=== PATIENT | female | born 1955 | race African-American/Black ===

== ENCOUNTER 2023-05-07 20:10 | Inpatient (IN) | payer OTHER ==
[2023-05-07 20:28] VITALS: BMI 30.9
[2023-05-07] MEDS ORDERED: ACETAMINOPHEN 1000 MG/100 ML BAG IVPB ONE (21:14)
[2023-05-07] MEDS ORDERED: ACETAMINOPHEN INJECTION 100 ML IVPB ONE ×2 (22:31→23:39)
[2023-05-07 23:29] LABS: EPI CELLS 11 /uL (0-25.1); HYALINE CASTS 10 /uL (0-3.1); PH,URINE >= 9.0 (5.0-8.0); URINE APPEARANCE TURBID; URINE BILIRUBIN 1+ (NEGATIVE); URINE COLOR RED; URINE GLUCOSE (UA) NEGATIVE (NEGATIVE); URINE KETONE NEGATIVE (NEGATIVE); URINE LEUK ESTERASE 3+ (NEGATIVE); URINE NITRITE POSITIVE (NEGATIVE); URINE PROTEIN 3+ (NEGATIVE); URINE UROBILINOGEN 0.2 mg/dL (0.2-1.0); URINE WBC 701 /uL (0-25.8)
[2023-05-07 23:33] LABS: URINE BACTERIA 63.1 /uL (0-1359)
[2023-05-07 23:33] LABS: BASO % 1.1 % (0-2.0); EOS % 2.1 % (0-4.5); HEMATOCRIT 39.7 % (32.4-45.2); HEMOGLOBIN 13.1 GM/dL (10.7-15.3); LYMPH % 33.5 % (8-40); MCH 27.9 pg (25.7-33.7); MCHC 33.1 g/dl (32.0-36.0); MEAN CELL VOLUME 84.4 fl (80-96); MEAN PLT VOLUME 8.7 fl (7.5-11.1); MONO % 5.7 % (3.8-10.2); NEUT % 57.6 % (42.8-82.8); PLATELET COUNT 269 10^3/uL (134-434); RDW 14.6 % (11.6-15.6); WHITE BLOOD COUNT 7.2 K/mm3 (4.0-10.0)
[2023-05-07] MEDS ORDERED: morphine CARPU-JECT 4 MG/1 ML DISP.SYRIN IVPUSH ONE (23:43)
[2023-05-07] MEDS ORDERED: LACTATED RINGERS SOLUTION 1,000 ML IV STA (23:44)
[2023-05-07] MEDS ORDERED: morphine SULFATE 4 MG/ML VIAL ONE (23:50)
[2023-05-07 23:52] LABS: POTASSIUM 4.2 mmol/L (3.5-5.1)
[2023-05-07 23:54] LABS: ALBUMIN 3.3 g/dl (3.4-5.0); BLOOD UREA NITROGEN 15.9 mg/dL (7-18); CALCIUM 9.1 mg/dL (8.5-10.1)
[2023-05-07 23:57] LABS: CREATININE 0.8 mg/dL (0.55-1.3)
[2023-05-07 23:59] LABS: BILIRUBIN,TOTAL 0.3 mg/dL (0.2-1); TOT PROT 7.1 g/dl (6.4-8.2)
[2023-05-08] MEDS ORDERED: CEFTRIAXONE 1,000 MG in DEXTROSE 5%-WATER - 50 ML IVPB ONE (00:09)
[2023-05-08] MEDS ORDERED: CEFTRIAXONE 1 GM/50 ML BAG ONE (00:20)
[2023-05-08 00:33] LABS: INR 1.04 (0.83-1.09); PROTHROMBIN TIME (PATIENT) 12.1 SEC (9.7-13.0)
[2023-05-08 00:36] LABS: ACTIVATED PTT 27.8 SECONDS (25.2-36.5)
[2023-05-08] MEDS ORDERED: DOCUSATE SODIUM 100 MG CAPSULE (FP) PO PRN (03:46)
[2023-05-08 05:38] VITALS: RESP 18
[2023-05-08 06:42] LABS: BASO % 0.7 % (0-2.0); EOS % 2.6 % (0-4.5); HEMATOCRIT 37.8 % (32.4-45.2); HEMOGLOBIN 12.4 GM/dL (10.7-15.3); LYMPH % 44.2 % (8-40); MCH 27.9 pg (25.7-33.7); MCHC 32.8 g/dl (32.0-36.0); MEAN PLT VOLUME 9.3 fl (7.5-11.1); MONO % 5.5 % (3.8-10.2); PLATELET COUNT 248 10^3/uL (134-434); RBC 4.44 M/mm3 (3.60-5.2); RDW 14.4 % (11.6-15.6); WHITE BLOOD COUNT 6.4 K/mm3 (4.0-10.0)
[2023-05-08 07:04] LABS: CALCIUM 8.8 mg/dL (8.5-10.1)
[2023-05-08 07:05] LABS: BLOOD UREA NITROGEN 14.4 mg/dL (7-18)
[2023-05-08 07:08] LABS: PHOSPHOROUS 3.6 mg/dL (2.5-4.9)
[2023-05-08 07:09] LABS: CREATININE 0.7 mg/dL (0.55-1.3)
[2023-05-08] MEDS: INSULIN ASPART SLIDING SCALE (NOVOLOG) 1 VIAL SQ SCH ×4 (08:36→21:31)
[2023-05-08] MEDS ORDERED: FLUTICASONE/UMECLIDIN/VILANTER(200-62.5-25 TRELEGY ELLIPTA) INAHLER IH SCH (11:30)
[2023-05-08] MEDS: POLYETHYLENE GLYCOL (HEALTHYLAX) 3350 17 GM PACKET PO SCH ×3 (11:59→21:27)
[2023-05-08] MEDS ORDERED: traMADol HCL 50 MG TABLET PO ONE (14:11)
[2023-05-08] MEDS ORDERED: CEFTRIAXONE 1 GM in DEXTROSE 5%-WATER - 50 ML IVPB SCH (22:00)
[2023-05-09] MEDS ORDERED: ACETAMINOPHEN 325 MG TABLET (FP) PO PRN (06:00)
[2023-05-09] MEDS: INSULIN ASPART SLIDING SCALE (NOVOLOG) 1 VIAL SQ SCH ×2 (07:05→12:02)
[2023-05-09] MEDS ORDERED: ATENOLOL 25 MG TABLET (FP) PO SCH (10:00)
[2023-05-09] MEDS: POLYETHYLENE GLYCOL (HEALTHYLAX) 3350 17 GM PACKET PO SCH (10:24)
[2023-05-09 16:04] VITALS: BP 184/68; PULSE 121; TEMP 98.7
== END 2023-05-09 17:40 | disposition home or self-care (01) | DRG 690 ==
LOC: JER 20:10 → JERBED 05-08 00:13 → J5S 05-08 06:40
PROVIDERS: ADMIT Internal Medicine; ATTEND Family Medicine
DX: N30.91 Cystitis, unspecified with hematuria (principal); R51.9 Headache, unspecified; R10.9 Unspecified abdominal pain; I10 Essential (primary) hypertension; E78.5 Hyperlipidemia, unspecified; E11.9 Type 2 diabetes mellitus without complications; F17.210 Nicotine dependence, cigarettes, uncomplicated; M54.50 Low back pain, unspecified; N20.0 Calculus of kidney
CPT/HCPCS: 0241U-QW; 36415; 70450-TC; 74176-TC; 80048; 80053; 81003; 82962; 83735; 84100; 85025; 85610; 85730; 87040; 87086; 87186; 93005; 93010; 99285-25

== ENCOUNTER 2023-07-15 16:36 | Inpatient (IN) | payer OTHER ==
[2023-07-15 16:56] VITALS: BMI 29.2
[2023-07-15 17:53] LABS: BASO % 1.1 % (0-2.0); EOS % 2.4 % (0-4.5); HEMATOCRIT 38.9 % (32.4-45.2); HEMOGLOBIN 12.9 GM/dL (10.7-15.3); MEAN CELL VOLUME 84.8 fl (80-96); MEAN PLT VOLUME 8.8 fl (7.5-11.1); MONO % 6.6 % (3.8-10.2); NEUT % 64.9 % (42.8-82.8); PLATELET COUNT 234 10^3/uL (134-434); RBC 4.59 M/mm3 (3.60-5.2); RDW 14.6 % (11.6-15.6); WHITE BLOOD COUNT 5.9 K/mm3 (4.0-10.0)
[2023-07-15 17:58] LABS: VENOUS O2 SATURATION 94.3 % (70-80); VENOUS PCO2 50.3 mmHg (38-52); VENOUS PH 7.353 (7.310-7.410)
[2023-07-15 18:16] LABS: POTASSIUM 4.1 mmol/L (3.5-5.1)
[2023-07-15 18:19] LABS: CALCIUM 8.9 mg/dL (8.5-10.1)
[2023-07-15 18:21] LABS: BLOOD UREA NITROGEN 15.2 mg/dL (7-18)
[2023-07-15 18:24] LABS: BILIRUBIN,TOTAL 0.4 mg/dL (0.2-1); TOT PROT 6.4 g/dl (6.4-8.2)
[2023-07-15] MEDS ORDERED: NALOXONE HCL 0.4 MG/ML VIAL ONE (18:26)
[2023-07-15 18:28] LABS: N-TERMINAL BNP 1958.9 pg/ml (5-125)
[2023-07-15] MEDS: NALOXONE HCL 0.4 MG/ML VIAL IVPUSH ONE (18:36)
[2023-07-15 19:55] LABS: EPI CELLS 10 /uL (0-25.1); HYALINE CASTS 0 /uL (0-3.1); PH,URINE 5.5 (5.0-8.0); URINE APPEARANCE CLOUDY; URINE BACTERIA >9,000 /uL (0-1359); URINE BILIRUBIN NEGATIVE (NEGATIVE); URINE COLOR YELLOW; URINE GLUCOSE (UA) TRACE (NEGATIVE); URINE KETONE NEGATIVE (NEGATIVE); URINE LEUK ESTERASE TRACE (NEGATIVE); URINE NITRITE NEGATIVE (NEGATIVE); URINE PROTEIN 2+ (NEGATIVE); URINE RBC 6 /uL (0-23.9); URINE UROBILINOGEN 0.2 mg/dL (0.2-1.0); URINE WBC 29 /uL (0-25.8)
[2023-07-15 20:46] LABS: PHENCYCLIDINE,URINE NEGATIVE (NEGATIVE); URINE BENZODIAZEPINES NEGATIVE (NEGATIVE)
[2023-07-15 20:48] LABS: COCAINE, UR NEGATIVE (NEGATIVE); METHADONE, UR NEGATIVE (NEGATIVE); OPIATES, URI NEGATIVE (NEGATIVE); URINE BARBITURATES NEGATIVE (NEGATIVE)
[2023-07-15 20:57] LABS: URINE AMPHETAMINES NEGATIVE (NEGATIVE)
[2023-07-16] MEDS ORDERED: hydrALAZINE HCL 20 MG/ML VIAL ONE (03:32)
[2023-07-16] MEDS: hydrALAZINE HCL 20 MG/ML VIAL IVPUSH ONE ×2 (03:39→20:29)
[2023-07-16] MEDS: ACETAMINOPHEN 1000 MG/100 ML BAG IVPB ONE ×2 (03:39→21:02)
[2023-07-16] MEDS: METOPROLOL TARTRATE 5 MG/5 ML VIAL IVPUSH ONE (06:23)
[2023-07-16] MEDS: INSULIN ASPART SLIDING SCALE (NOVOLOG) 1 VIAL SQ SCH (06:33)
[2023-07-16] MEDS ORDERED: ALBUTEROL SO4 HFA INHALER IH PRN ×2 (07:11→22:54)
[2023-07-16] MEDS ORDERED: POLYETHYLENE GLYCOL (HEALTHYLAX) 3350 17 GM PACKET PO PRN (07:11)
[2023-07-16 07:39] LABS: BASO % 0.8 % (0-2.0); EOS % 2.2 % (0-4.5); HEMATOCRIT 38.8 % (32.4-45.2); HEMOGLOBIN 12.8 GM/dL (10.7-15.3); MCH 28.1 pg (25.7-33.7); MCHC 32.9 g/dl (32.0-36.0); MEAN CELL VOLUME 85.3 fl (80-96); MEAN PLT VOLUME 9.1 fl (7.5-11.1); MONO % 6.8 % (3.8-10.2); NEUT % 69.2 % (42.8-82.8); PLATELET COUNT 237 10^3/uL (134-434); RBC 4.55 M/mm3 (3.60-5.2); WHITE BLOOD COUNT 7.2 K/mm3 (4.0-10.0)
[2023-07-16 07:41] LABS: INR 1.22 (0.83-1.09); PROTHROMBIN TIME (PATIENT) 14.1 SEC (9.7-13.0)
[2023-07-16 07:44] LABS: ACTIVATED PTT 33.2 SECONDS (25.2-36.5)
[2023-07-16 07:51] LABS: POTASSIUM 3.7 mmol/L (3.5-5.1)
[2023-07-16 07:57] LABS: CALCIUM 8.8 mg/dL (8.5-10.1)
[2023-07-16 07:58] LABS: BLOOD UREA NITROGEN 12.3 mg/dL (7-18)
[2023-07-16 08:00] LABS: CREATININE 0.9 mg/dL (0.55-1.3)
[2023-07-16] MEDS: GABAPENTIN 400 MG CAPSULE PO SCH (10:37)
[2023-07-16] MEDS: TAMSULOSIN HCL 0.4 MG CAP PO SCH (10:37)
[2023-07-16] MEDS: oxyCODONE HCL 5 MG TABLET PO PRN (10:38)
[2023-07-16] MEDS ORDERED: INSULIN (NOVOLOG) ASPART 100 UNITS/ML 10ML VIAL ONE ×3 (13:33→21:08)
[2023-07-16] MEDS: NORTRIPTYLINE HCL 10 MG CAPSULE PO SCH (22:36)
[2023-07-16] MEDS: ENALAPRIL MALEATE 10 MG TABLET PO SCH (23:23)
[2023-07-16] MEDS: APIXABAN 5 MG TABLET PO SCH (23:23)
[2023-07-16] MEDS: ROSUVASTATIN CA 20 MG TABLET PO SCH (23:23)
[2023-07-16] MEDS: PRAMIPEXOLE DIHYDROCHLORIDE 0.25 MG TABLET PO SCH (23:55)
[2023-07-17] MEDS ORDERED: INSULIN (NOVOLOG) ASPART 100 UNITS/ML 10ML VIAL ONE ×5 (06:00→21:21)
[2023-07-17 06:44] LABS: POTASSIUM 4.5 mmol/L (3.5-5.1)
[2023-07-17 06:49] LABS: CALCIUM 8.7 mg/dL (8.5-10.1)
[2023-07-17 06:50] LABS: BLOOD UREA NITROGEN 22.5 mg/dL (7-18)
[2023-07-17 06:53] LABS: CREATININE 1.2 mg/dL (0.55-1.3)
[2023-07-17 07:03] LABS: EOS % 2.5 % (0-4.5); HEMATOCRIT 39.5 % (32.4-45.2); HEMOGLOBIN 12.9 GM/dL (10.7-15.3); LYMPH % 24.9 % (8-40); MCH 27.9 pg (25.7-33.7); MCHC 32.7 g/dl (32.0-36.0); MEAN CELL VOLUME 85.3 fl (80-96); MEAN PLT VOLUME 9.5 fl (7.5-11.1); NEUT % 65.6 % (42.8-82.8); PLATELET COUNT 236 10^3/uL (134-434); RBC 4.63 M/mm3 (3.60-5.2); RDW 14.8 % (11.6-15.6); WHITE BLOOD COUNT 7.3 K/mm3 (4.0-10.0)
[2023-07-17] MEDS: EZETIMIBE 10 MG TABLET (FP) PO SCH (21:26)
[2023-07-18] MEDS: ACETAMINOPHEN 1000 MG/100 ML BAG IVPB ONE (02:55)
[2023-07-18] MEDS: MELATONIN 5 MG TABLETS PO ONE (02:56)
[2023-07-18] MEDS ORDERED: INSULIN (NOVOLOG) ASPART 100 UNITS/ML 10ML VIAL ONE ×2 (06:41→11:01)
[2023-07-18 07:15] LABS: HEMATOCRIT 37.9 % (32.4-45.2); HEMOGLOBIN 12.2 GM/dL (10.7-15.3); MCH 27.6 pg (25.7-33.7); MCHC 32.2 g/dl (32.0-36.0); MEAN CELL VOLUME 85.9 fl (80-96); MEAN PLT VOLUME 9.2 fl (7.5-11.1); PLATELET COUNT 252 10^3/uL (134-434); RBC 4.41 M/mm3 (3.60-5.2); RDW 14.4 % (11.6-15.6); WHITE BLOOD COUNT 6.4 K/mm3 (4.0-10.0)
[2023-07-18 07:40] LABS: POTASSIUM 4.5 mmol/L (3.5-5.1)
[2023-07-18 07:57] LABS: CALCIUM 8.7 mg/dL (8.5-10.1)
[2023-07-18 07:58] LABS: ALBUMIN 2.6 g/dl (3.4-5.0); BLOOD UREA NITROGEN 24.4 mg/dL (7-18)
[2023-07-18 08:01] LABS: CREATININE 1.1 mg/dL (0.55-1.3)
[2023-07-18 08:03] LABS: BILIRUBIN,TOTAL 0.2 mg/dL (0.2-1); TOT PROT 5.9 g/dl (6.4-8.2)
[2023-07-18 08:20] VITALS: RESP 14
[2023-07-18 12:02] VITALS: BP 171/83; PULSE 51; TEMP 98.2
== END 2023-07-18 15:34 | disposition home or self-care (01) | DRG 689 ==
LOC: JER 16:36 → JERBED 20:43 → J2W 07-16 04:54
PROVIDERS: ADMIT Internal Medicine; ATTEND Family Medicine
DX: N39.0 Urinary tract infection, site not specified (principal); G93.41 Metabolic encephalopathy; E78.5 Hyperlipidemia, unspecified; R41.82 Altered mental status, unspecified; E11.9 Type 2 diabetes mellitus without complications; I10 Essential (primary) hypertension
CPT/HCPCS: 0241U-QW; 36415; 70450-TC; 71045-TC-FY; 74176-TC; 80048; 80053; 80307; 81003; 82803; 82962; 83036; 83735; 83880; 84439; 84443; 84484; 85025; 85027; 85610; 85730; 87086; 87186; 93005; 93010; 93306-TC; 93970-TC; 99285-25; J0131